=== PATIENT | male | born 1990 | race Caucasian/White ===

== ENCOUNTER 2018-07-10 16:02 | Emergency (ER) | payer SELFPAY ==
[~2018-07-10] VITALS: Ht 180.3 cm; Wt 165.0 kg
[2018-07-10 17:30] LABS: HEMATOCRIT 31.5 % (39.0-50.0); HEMOGLOBIN 10.3 g/dl (14.0-18.0); IMMATURE GRANULOCYTES 0.4 % (0.0-5.0); MEAN CORPUSCULAR HGB 28.5 pG CALC (26.0-32.0); MEAN CORPUSCULAR HGB CONC 32.7 g/L CALC (32.0-36.0); NEUT# 6.73 thou/uL (1.82-7.42); RED BLOOD COUNT 3.62 mill/uL (4.70-6.10); RED CELL DISTRI WIDTH 14.5 % (11.5-15.5)
[2018-07-10 17:44] LABS: ALBUMIN 3.5 g/dL (3.2-5.0); BILIRUBIN, TOTAL 0.2 mg/dL (0.0-1.4); CREATININE 1.7 mg/dL (0.7-1.3); POTASSIUM 4.3 mmol/l (3.5-5.1); TOTAL PROTEIN 6.7 g/dL (6.3-8.2)
[2018-07-10 18:05] VITALS: BP 128/84
[2018-07-10] MEDS ORDERED: LABETALOL100 MG PO (18:08)
[2018-07-10] MEDS ORDERED: NORVASC PO (18:08)
[2018-07-10] MEDS ORDERED: TOUJEO SOL300 UNIT/M SC (18:12)
[2018-07-10] MEDS ORDERED: NOVOLO1 SC (18:13)
== END 2018-07-10 18:19 | disposition home or self-care (01) | DRG 639 ==
LOC: ED 16:02
PROVIDERS: Emergency Medicine
DX: E10.649 Type 1 diabetes mellitus with hypoglycemia without coma (principal); E10.22 Type 1 diabetes mellitus with diabetic chronic kidney disease; N18.3 Chronic kidney disease, stage 3 (moderate); Z79.4 Long term (current) use of insulin

== ENCOUNTER 2019-06-24 19:02 | Emergency (ER) | payer OTHER ==
[~2019-06-24] VITALS: Ht 180.3 cm; Wt 77.0 kg
[~2019-06-24 19:02] MED LIST: LABETALOL100 MG PO; NORVASC PO; NOVOLO1 SC; TOUJEO SOL300 UNIT/M SC
[2019-06-24 20:31] LABS: HEMATOCRIT 35.9 % (39.0-50.0); HEMOGLOBIN 12.1 g/dl (14.0-18.0); IMMATURE GRANULOCYTES 0.3 % (0.0-5.0); MEAN CELL VOLUME 82.7 fL CALC (80.0-100.0); MEAN CORPUSCULAR HGB 27.9 pG CALC (26.0-32.0); MEAN CORPUSCULAR HGB CONC 33.7 g/L CALC (32.0-36.0); NEUT# 5.01 thou/uL (1.82-7.42); RED BLOOD COUNT 4.34 mill/uL (4.70-6.10); RED CELL DISTRI WIDTH 13.4 % (11.5-15.5)
[2019-06-24 20:48] LABS: ALBUMIN 4.1 g/dL (3.2-5.0); POTASSIUM 4.8 mmol/l (3.5-5.1); TOTAL PROTEIN 7.4 g/dL (6.3-8.2)
[2019-06-24 20:54] LABS: BILIRUBIN, TOTAL 0.4 mg/dL (0.0-1.4)
[2019-06-24] MEDS ORDERED: ZOFRAN4 MG/TAB PO (21:09)
[2019-06-24 21:36] VITALS: BP 97/85
== END 2019-06-24 21:36 | disposition home or self-care (01) ==
LOC: ED 19:02
DX: R10.11 Right upper quadrant pain (principal); R10.31 Right lower quadrant pain; R11.2 Nausea with vomiting, unspecified; E11.22 Type 2 diabetes mellitus with diabetic chronic kidney disease; N17.9 Acute kidney failure, unspecified; N18.3 Chronic kidney disease, stage 3 (moderate); Z79.4 Long term (current) use of insulin

== ENCOUNTER 2020-04-13 13:13 | Emergency (ER) | payer OTHER ==
[~2020-04-13] VITALS: Ht 180.3 cm; Wt 86.0 kg
[~2020-04-13 13:13] MED LIST changes: +ZOFRAN4 MG/TAB PO
[2020-04-13 13:30] LABS: HEMATOCRIT 35.3 % (39.0-50.0); HEMOGLOBIN 11.3 g/dl (14.0-18.0); IMMATURE GRANULOCYTES 0.2 % (0.0-5.0); MEAN CELL VOLUME 86.3 fL CALC (80.0-100.0); MEAN CORPUSCULAR HGB 27.6 pG CALC (26.0-32.0); NEUT# 2.96 thou/uL (1.82-7.42); RED BLOOD COUNT 4.09 mill/uL (4.70-6.10)
[2020-04-13 13:58] LABS: ALBUMIN 4.4 g/dL (3.2-5.0); TOTAL PROTEIN 8.4 g/dL (6.3-8.2)
[2020-04-13 14:00] LABS: BILIRUBIN, TOTAL 0.2 mg/dL (0.0-1.4); CREATININE 1.8 mg/dL (0.7-1.3); POTASSIUM 5.2 mmol/l (3.5-5.1)
[2020-04-13 15:49] LABS: URINE BILIRUBIN - DIPSTICK NEGATIVE (NEGATIVE); URINE BLOOD DIPSTICK TRACE-INTACT (NEGATIVE); URINE COLOR YELLOW; URINE GLUCOSE - DIPSTICK 250 mg/dL (NEGATIVE); URINE KETONE NEGATIVE (NEGATIVE); URINE LEUK ESTERASE NEGATIVE (NEGATIVE); URINE NITRITE - DIPSTICK NEGATIVE (Negative); URINE PH 6.5 (4.5-8.0); URINE PROTEIN - DIPSTICK 30 mg/dL (NEG-TRACE); URINE SPECIFIC GRAVITY 1.015; URINE UROBILINOGEN - DIPSTICK 0.2 E.U./dL (0.2)
[2020-04-13 15:53] LABS: URINE RBC 0-2 RBC/hpf (0-5); URINE WBC 0-2 WBC/hpf (0-5)
[2020-04-13 16:16] VITALS: BP 150/89
== END 2020-04-13 16:16 | disposition home or self-care (01) ==
LOC: ED 13:13
PROVIDERS: Student in an Organized Health Care Education/Training Program
DX: E10.22 Type 1 diabetes mellitus with diabetic chronic kidney disease (principal); N18.3 Chronic kidney disease, stage 3 (moderate); R56.9 Unspecified convulsions; I42.9 Cardiomyopathy, unspecified; Z79.4 Long term (current) use of insulin

== ENCOUNTER 2021-03-31 06:25 | Emergency (ER) | payer MEDICARE, OTHER ==
[~2021-03-31] VITALS: Ht 175.3 cm; Wt 70.0 kg
[2021-03-31] MEDS ORDERED: LISINOPRIL5 MG PO (07:18)
[2021-03-31 07:58] LABS: HEMATOCRIT 38.2 % (39.0-50.0); HEMOGLOBIN 12.1 g/dl (14.0-18.0); IMMATURE GRANULOCYTES 0.2 % (0.0-5.0); MEAN CELL VOLUME 90.1 fL CALC (80.0-100.0); MEAN CORPUSCULAR HGB 28.5 pG CALC (26.0-32.0); MEAN CORPUSCULAR HGB CONC 31.7 g/dL CAL (32.0-36.0); NEUT# 3.1 thou/uL (1.82-7.42); RED BLOOD COUNT 4.24 mill/uL (4.70-6.10); RED CELL DISTRI WIDTH 12.9 % (11.5-15.5)
[2021-03-31 08:03] LABS: URINE BILIRUBIN - DIPSTICK NEGATIVE (NEGATIVE); URINE BLOOD DIPSTICK TRACE-INTACT (NEGATIVE); URINE COLOR YELLOW; URINE GLUCOSE - DIPSTICK >=1000 mg/dL (NEGATIVE); URINE LEUK ESTERASE NEGATIVE (NEGATIVE); URINE PROTEIN - DIPSTICK 100 mg/dL (NEG-TRACE); URINE SPECIFIC GRAVITY 1.025; URINE UROBILINOGEN - DIPSTICK 0.2 E.U./dL (0.2)
[2021-03-31 08:07] LABS: URINE NITRITE - DIPSTICK NEGATIVE (Negative)
[2021-03-31 08:08] LABS: URINE KETONE Negative (NEGATIVE)
[2021-03-31 08:09] LABS: URINE RBC 0-2 RBC/hpf (0-5); URINE WBC 0-2 WBC/hpf (0-5)
[2021-03-31 08:18] LABS: ALBUMIN 4.2 g/dL (3.2-5.0); MAGNESIUM 1.8 mg/dL (1.6-2.3); TOTAL PROTEIN 7.4 g/dL (6.3-8.2)
[2021-03-31 08:25] LABS: BILIRUBIN, TOTAL 0.3 mg/dL (0.0-1.4); CREATININE 3.1 mg/dL (0.7-1.3); POTASSIUM 6.3 mmol/l (3.5-5.1)
[2021-03-31 13:15] VITALS: BP 141/89
== END 2021-03-31 13:40 | disposition short-term general hospital (02) ==
LOC: ED 06:25
PROVIDERS: Family Medicine
DX: U07.1 COVID-19 (principal); E10.65 Type 1 diabetes mellitus with hyperglycemia; E87.5 Hyperkalemia; I42.9 Cardiomyopathy, unspecified; I12.9 Hypertensive chronic kidney disease with stage 1 through stage 4 chronic kidney disease, or unspecified chronic kidney disease; E10.22 Type 1 diabetes mellitus with diabetic chronic kidney disease; N18.30 Chronic kidney disease, stage 3 unspecified; R94.31 Abnormal electrocardiogram [ECG] [EKG]; Z79.4 Long term (current) use of insulin
CPT/HCPCS: J1650

== ENCOUNTER 2022-01-18 13:25 | Emergency (ER) | payer MEDICARE, OTHER ==
[~2022-01-18] VITALS: Ht 175.3 cm; Wt 68.7 kg
[~2022-01-18 13:25] MED LIST changes: +LISINOPRIL5 MG PO
[2022-01-18] MEDS ORDERED: LEVEMIR100 UNIT SC ×2 (13:49→13:50)
[2022-01-18 13:51] LABS: HEMOGLOBIN 10.9 g/dl (14.0-18.0); IMMATURE GRANULOCYTES 0.1 % (0.0-5.0); MEAN CORPUSCULAR HGB 28.9 pG CALC (26.0-32.0); MEAN CORPUSCULAR HGB CONC 34.2 g/dL CAL (32.0-36.0); NEUT# 6.52 thou/uL (1.82-7.42); RED BLOOD COUNT 3.77 mill/uL (4.70-6.10); RED CELL DISTRI WIDTH 12.9 % (11.5-15.5)
[2022-01-18 13:56] LABS: HEMATOCRIT 31.9 % (39.0-50.0); MEAN CELL VOLUME 84.6 fL CALC (80.0-100.0)
[2022-01-18 14:06] LABS: ALBUMIN 4.3 g/dL (3.2-5.0); BILIRUBIN, TOTAL 0.3 mg/dL (0.0-1.4); CREATININE 3.1 mg/dL (0.7-1.3); TOTAL PROTEIN 7.5 g/dL (6.3-8.2)
[2022-01-18 14:07] LABS: POTASSIUM 4.2 mmol/l (3.5-5.1)
[2022-01-18 15:50] LABS: PROTHROMBIN TIME 10.4 SECONDS (9.0-12.5)
[2022-01-18 16:59] VITALS: BP 124/84
== END 2022-01-18 16:30 | disposition short-term general hospital (02) ==
LOC: ED 13:25
PROVIDERS: Family Medicine
DX: R07.9 Chest pain, unspecified (principal); E10.22 Type 1 diabetes mellitus with diabetic chronic kidney disease; N18.30 Chronic kidney disease, stage 3 unspecified; Z79.4 Long term (current) use of insulin; N17.9 Acute kidney failure, unspecified; Z20.822 Contact with and (suspected) exposure to COVID-19
CPT/HCPCS: J1644

== ENCOUNTER 2022-05-15 11:34 | Emergency (ER) | payer MEDICARE, OTHER ==
[~2022-05-15] VITALS: Ht 175.3 cm; Wt 70.4 kg
[~2022-05-15 11:34] MED LIST changes: +LEVEMIR100 UNIT SC
[2022-05-15 11:48] VITALS: BP 144/99
[2022-05-15 12:00] VITALS: BP 148/96
[2022-05-15 12:30] VITALS: BP 138/86
[2022-05-15 12:58] LABS: HEMATOCRIT 33.9 % (39.0-50.0); HEMOGLOBIN 11.3 g/dl (14.0-18.0); MEAN CELL VOLUME 86.3 fL CALC (80.0-100.0); MEAN CORPUSCULAR HGB 28.8 pG CALC (26.0-32.0); MEAN CORPUSCULAR HGB CONC 33.3 g/dL CAL (32.0-36.0); NEUT# 5.96 thou/uL (1.82-7.42); RED BLOOD COUNT 3.93 mill/uL (4.70-6.10); RED CELL DISTRI WIDTH 12.6 % (11.5-15.5)
[2022-05-15 13:00] VITALS: BP 134/103
[2022-05-15 13:11] LABS: ALBUMIN 3.9 g/dL (3.2-5.0); ALKALINE PHOSPHATASE 84 u/l (38-126); ANION GAP 10 (6-22 (CALC)); BILIRUBIN, TOTAL 0.2 mg/dL (0.0-1.4); C-REACTIVE PROTEIN < 0.5 mg/dL (0-0.9); CARBON DIOXIDE 31 mmol/l (22-30); CHLORIDE 103 mmol/l (95-108); GFR FOR AFR.AMER. 50 ML/MIN (>=60 (CALC)); GFR OTHER RACES 42 ML/MIN (>=60 (CALC)); POTASSIUM 4.7 mmol/l (3.5-5.1); SGOT/AST 39 u/l (17-59); SODIUM 139 mmol/l (137-146); TOTAL PROTEIN 7.5 g/dL (6.3-8.2)
[2022-05-15 13:19] LABS: BUN 29 mg/dL (9-20); BUN/CREATININE RATIO 15 (12-20 (CALC)); CREATININE 1.9 mg/dL (0.7-1.3)
[2022-05-15 13:30] VITALS: BP 136/98
[2022-05-15] MEDS ORDERED: VIBRAMYCIN100 M2 PO (13:41)
[2022-05-15 13:53] VITALS: BP 136/98
== END 2022-05-15 13:58 | disposition home or self-care (01) ==
LOC: ED 11:34
PROVIDERS: Nurse Practitioner
DX: L03.114 Cellulitis of left upper limb (principal); L03.113 Cellulitis of right upper limb; I12.9 Hypertensive chronic kidney disease with stage 1 through stage 4 chronic kidney disease, or unspecified chronic kidney disease; E10.22 Type 1 diabetes mellitus with diabetic chronic kidney disease; N18.30 Chronic kidney disease, stage 3 unspecified; G40.909 Epilepsy, unspecified, not intractable, without status epilepticus; Z79.4 Long term (current) use of insulin